=== PATIENT | male | born 1975 | race Caucasian/White ===

== ENCOUNTER 2016-09-06 07:01 | Inpatient (IN) | payer OTHER, BC ==
--- NOTE | ~2016-09-06 | CN ---
Consultation Report [facility] [address] [place]. [address] NAME: LAY BEASLEY : 79 STATUS : ADM IN PAT#: [id number] AGE: 40 ADM/REG DATE : 09/06/16 MR#: [id number] REPORT SERV DATE: 09/07/16 DICTATED BY: LIBRA MOREIRA DATE: 09/06/16 REPORT STATUS : Draft TRANSCRIBED BY: MODL DATE: 09/06/16 CONSULTATION REPORT DATE OF CONSULTATION: 09/06/2016 REASON FOR CONSULTATION: Consulted for tachycardia. IDENTIFYING DATA: 1. Primary care physician Michael Spaulding in [place], [place]. 2. Orthopedist, Nicholas Deng M.D. HISTORY OF PRESENT ILLNESS: This is a 40-year-old, male, with minimal history of health problems. He basically has no allergies. He has chronic GERD, and he has had dental surgery in the past. He presently is postoperative from his minimally invasive navigational assisted T11 to T12 facetectomy, transforaminal interbody fusion with cages with Dr. Nicholas Deng. Postoperatively, the patient has had some tachycardia for which the hospitalist group has been consulted. As previously noted, the patient has no past history of cardiac, respiratory, or very few medical problems barring occasional illness and chronic GERD. Upon discussing with the patient about the consult, he has no complaints of shortness of breath, chest pain, and is totally unaware of the tachycardia. The patient's history was obtained through interview with the patient. There was no previous notation in [facility] on admission. PAST MEDICAL HISTORY: GERD. HOME MEDICATIONS: 1. Indocin 25 mg p.o. three times daily. 2. Aleve 220 mg p.o. every 12 hours. 3. Prilosec xiaj-uyi-ldohrhs 20 mg p.o. daily. ALLERGIES: NO KNOWN ALLERGIES. SOCIAL HISTORY: The patient has been for 17 years. He has two children. 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 He bikes 2-3 times a week and has no complaints of chest pain or shortness of breath. He lives in a [facility] home. No tobacco, alcohol, or illicit drug use. FAMILY HISTORY: Positive for diabetes, cardiovascular disease, and rheumatoid arthritis. His mother was positive for hypertension, had a previous cardiac stent, diabetes, and rheumatoid arthritis. Father is alive and healthy. The patient has 3 half siblings. Health history is unknown. Consultation Report [facility] [address] [place]. [address] NAME: LAY BEASLEY : 79 STATUS : ADM IN PAT#: [id number] AGE: 40 ADM/REG DATE : 09/06/16 MR#: [id number] REPORT SERV DATE: 09/07/16 DICTATED BY: LIBRA MOREIRA DATE: 09/06/16 REPORT STATUS : Draft TRANSCRIBED BY: RYANNE DATE: 09/06/16 SURGICAL HISTORY: Dental surgery in 2014 other than the patient has the present surgery with Dr. Nicholas Deng. REVIEW OF SYSTEMS: Negative other than what is in HPI. The patient is alert and oriented x3. He has no nausea and vomiting. He has no abdominal pain. He has had no shortness of breath. He has had no chest pain. He has had no fever. He is not confused nor is there any agitation. PHYSICAL EXAMINATION: VITAL SIGNS: From today; blood pressure 119/76, respiratory rate 16, heart rate 110, temperature 98.0, O2 saturation 94% on 2 L nasal cannula. GENERAL: This is a very pleasant 40-year-old, male, resting in bed. No acute distress. He has his at bedside. He is awake and alert and answers questions appropriately. NEURO: His head is atraumatic. He is normocephalic. Alert and oriented x3. His cranial nerves 2-12 are grossly intact. His mood is pleasant and appropriate. NECK: Supple. Trachea is midline. No JVD noted. No obvious thyromegaly or lymphadenopathy. EENT: His sclerae are nonicteric. His pupils are equal and reactive to light. His nares are patent. His mucous membranes are moist. His tongue is midline. No deviation. Soft palate rises equally when he is talking. CHEST: No pain with palpation. LUNGS: Clear to auscultation bilaterally. He has normal respiratory effort. He has no increased work of breathing with conversation. He is encouraged to use the incentive spirometer to prevent atelectasis and pneumonia. CARDIOVASCULAR: S1, S2. No obvious murmurs, rubs, or gallops. The patient is on defensive monitoring which displays sinus tachycardia with a rate at 116. ABDOMEN: Soft, nontender. The patient has active bowel sounds. No palpable organomegaly. States his last bowel movement was 09/06/2016. SKIN: Warm and dry. No unusual rashes or lesions. Normal color and turgor. PSYCH: The patient is pleasant and cooperative with an appropriate mood and affect. SURGICAL WOUND SITE: Dressing is clean, dry, and intact. The patient has a LINDA drain that is compressed with sanguinous drainage. He does have bilateral TEDs and SCDs in place with normal distal pulses. No calf tenderness and no edema to the lower extremities. LABORATORY DATA: Sodium 140, potassium 4.3, chloride 106, BUN 14, creatinine 1.37, GFR 65, glucose 148, calcium 8.3, white blood cell 15.3, hemoglobin 14.5, hematocrit 43.6, platelets 315. Blood sugars noted were 105, 135, 148. The patient does have a chest x-ray ordered for in the a.m. postoperatively. On 09/06/2016, an ECG was ordered which displays a sinus tachycardia with an inferior infarct of age undetermined and noted as an abnormal ECG. ASSESSMENT AND PLAN: Consultation Report [address] [place]. [address] NAME: LAY BEASLEY : 79 STATUS : ADM IN [facility]#: [id number] AGE: 40 ADM/REG DATE : 09/06/16 MR#: [id number] REPORT SERV DATE: 09/07/16 DICTATED BY: LIBRA MOREIRA DATE: 09/06/16 REPORT STATUS : Draft TRANSCRIBED BY: MODCarrie DATE: 09/06/16 1. The hospitalist group was consulted. The patient has tachycardia. He states that he feels that his heart rate is normally not that high, when I told him he ran 112 to 120. He is on defensive monitoring. We will continue that while he is inpatient. We will check a TSH and a free T3 as well as a troponin q.8h x3. even though the patient has not complained of any chest pain. We have noted that his present ECG has noted it as an abnormal ECG with an old inferior infarct. We will also initiate a normal saline bolus. 2. Acute kidney injury. The patient was previously on NSAIDs of Aleve and Indocin at home, and they have been placed on hold. His present creatinine is 1.37. We will need to continue to hydrate the patient p.o. as well as with IV fluids which are placed at 125 an hour. We need to hold nephrotoxic drugs especially NSAIDs. We will repeat his BMP in the morning. 3. Gastroesophageal reflux disease. Aware. The patient does have chronic gastroesophageal reflux disease. We will continue his daily dose of Prilosec. 4. Elevated glucose. The patient blood sugars postoperatively were 105, 135, and 148. He is not diabetic but he does have Decadron ordered q.8 hours postoperatively by orthopedist. We will check his fingerstick blood sugars a.c. and at bedtime, and staff can call if his blood sugar is greater than 150. 5. Labs to be obtained; BMP, magnesium, phosphorus, CBC, TSH, free T4, hemoglobin A1c, a portable chest x-ray, and troponins q.8h x3. The hospitalist group would like to thank you for this consultation. Let us know if we can be of further assistance. /RYANNE Libra Moreira NP / [id number] CC: Marge Zimmerman II, FNP
--- NOTE | ~2016-09-06 | DS ---
Discharge Summary [facility] [address] [place]. [address] NAME: LAY BEASLEY : 79 STATUS : DIS IN PAT#: [id number] AGE: 40 ADM/REG DATE : 09/06/16 MR#: [id number] REPORT SERV DATE: 09/21/16 DICTATED BY: ADDIE DENG II DATE: 09/20/16 REPORT STATUS : Draft TRANSCRIBED BY: RYANNE DATE: 09/20/16 Data Collection from hospitalization DISCHARGE DIAGNOSES: 1. T11-T12 diskogenic thoracic spinal pain. 2. Left thoracic radiculopathy. 3. 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 4. Gastroesophageal reflux disease. CONSULTATIONS: 1. Dodie Albright M.D. 2. Libra Dent NP. PROCEDURES PERFORMED: Left T11-T12, complete facetectomy; interbody arthrodesis, T11-T12; application of prosthetic device, T11-T12; posterolateral arthrodesis, T11-T12; posterior nonsegmental instrumentation, T11-T12; use of local autograft, allograft substitute, and bone morphogenic protein; use of microscope and stereotactic spinal imaging, 09/06/2016. PATHOLOGY: Spine, lumbar bone, and tissue-fibrocartilaginous consistent with intervertebral disk. Benign bone fragments with degenerative changes. MEDICATIONS: Valium 2 mg every six hours as needed, Docu-Soft 100 mg twice a day, Dilaudid 2 mg every four hours as needed, Prilosec 20 mg daily. He was instructed not to continue naproxen/Aleve. CONDITION AT DISCHARGE: Stable. DISPOSITION: The patient was discharged home on a regular diet with activities as instructed. He would follow up with me, 09/28/2016. HOSPITAL COURSE: This is a 40-year-old man, who had complained of lumbar spine related symptoms. The symptoms are located in the low back. He had undergone a diskogram in May 2016. He has T11-T12 diskogenic thoracic spinal pain and left thoracic radiculopathy. He has stenosis at T11-T12. Treatment options were discussed and it was elected to proceed with surgical intervention. He was admitted to the hospital at this time for further evaluation and treatment. Upon admission, he was taken to the operating room where he underwent the above-mentioned procedure. He tolerated this well. There were no complications. Postoperatively, he was seen by Libra Dent regarding tachycardia. Postoperatively, he has some tachycardia. He has no past history of cardiac, respiratory, and very few medical problems. He does have chronic gastroesophageal reflux disease. He had no complaints of shortness of breath or chest pain, and was totally unaware of the tachycardia. ECG revealed sinus tachycardia with inferior infarct of age undetermined and this was noted as an abnormal ECG. The patient said that he felt that his heart rate was normally not this high. He was on defensive monitoring. This would be continued while he was an inpatient. TSH and free T3 were going to be checked as well as a troponin. His ECG had been abnormal with an old inferior infarct. He was also given a normal saline bolus. He was felt to have acute kidney injury. Discharge Summary [facility] [id number] [place]. [address] NAME: LAY BEASLEY : 79 STATUS : DIS IN PAT#: [id number] AGE: 40 ADM/REG DATE : 09/06/16 MR#: [id number] REPORT SERV DATE: 09/21/16 DICTATED BY: ADDIE DENG II DATE: 09/20/16 REPORT STATUS : Draft TRANSCRIBED BY: RYANNE DATE: 09/20/16 His creatinine level was 1.37, hydration was continued. Nephrotoxic drugs would be held especially NSAIDs. Daily Prilosec was continued. He is not a diabetic. Decadron had been ordered postoperatively. Blood cultures were obtained. We were going to check a hemoglobin A1c and other labs. On postop day #1, we encouraged him to mobilize. He did not sleep much the previous evening secondary to pain and inability to void. He denied any chest pain or shortness of breath. He did have some hiccups and indigestion. Level 1 sliding scale insulin was started. Hemoglobin A1c was 5.3. It was felt this is likely secondary to steroids. White blood cell count was 21.6 likely secondary to steroids. On 09/08/2016, the patient continued to do well. He still had some urinary retention. He was seen by Dr. Dodie Ablright regarding urinary retention. A Juarez catheter had been placed. He said he had no voiding issues preoperatively. His catheter revealed clear yellow urine. Urinalysis was entirely negative. The patient's acute kidney injury, hyperglycemia, and tachycardia had resolved. He did have leukocytosis and white count was 25.9. He said he was feeling much better at this time than the day previously. A voiding trial would be performed the following morning. Bladder scans were to be performed after each void. It was discussed with the patient that it was not unusual to have some difficulty emptying the bladder after surgery, especially spine surgery. After his voiding trial if the catheter needed to be replaced, he could have bladder rest with the catheter in place draining continuously and then follow up in the office for a voiding trial in one week. Discharge planning was performed. He was evaluated by Physical Therapy. Orthostatic blood pressures were checked. On 09/09/2016, he was alert and cooperative. He said he felt well. He did have some slight dizziness with ambulation. He was voiding okay after the Juarez was removed. He had not had a bowel movement. Urinalysis was negative. Blood cultures were negative. Chest x-ray showed no infiltrate. It was suspected that his postop tachycardia, acute kidney injury, urinary retention, and dizziness was suspected due to anesthesia reaction. These had now resolved. Discharge instructions were given. Due to his improved and stable condition, he was discharged home with the above-stated instructions. Information collected by: Bernie Milan I submit the above information as my discharge summary. TG/RYANNE Addie Deng II, M.D. / [id number] CC: Marge Zimmerman II, M.D. Charles Cyrus, MD
--- NOTE | ~2016-09-06 | CN ---
Consultation Report [facility] [address] [place]. [address] NAME: LAY BEASLEY : 79 STATUS : ADM IN [facility]#: [id number] AGE: 40 ADM/REG DATE : 09/06/16 MR#: [id number] REPORT SERV DATE: 09/09/16 DICTATED BY: DODIE ALBRIGHT DATE: 09/08/16 REPORT STATUS : Draft TRANSCRIBED BY: MODL DATE: 09/08/16 UROLOGY CONSULT DATE OF CONSULTATION: 09/08/2016 This consult is from Dr. Deng regarding urinary retention. CHIEF COMPLAINT: "I couldn't urinate." HISTORY: This is a 40-year-old gentleman who underwent thoracic spine surgery on 09/06/2016. He could not pass his urine and a Juarez catheter was placed yesterday around lunchtime. He states he had no voiding issues preoperatively. He currently has a catheter in place with clear yellow urine. His urinalysis was entirely negative. He has had some postoperative medical complications consisting of tachycardia, leukocytosis, hyperglycemia, acute kidney injury, and a syncopal episode this morning. His acute kidney injury, hyperglycemia, and tachycardia have resolved. His leukocytosis continues and is now 25.9 today. He states he feels much better today than yesterday. PAST MEDICAL HISTORY: Significant for back and disk disease, gastroesophageal reflux disease, and previous fractures. PAST SURGICAL HISTORY: No previous surgical history. HOME MEDICATIONS: Aleve and indomethacin. ALLERGIES: NO KNOWN DRUG ALLERGIES. 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 He denies any tobacco use. REVIEW OF SYSTEMS: GENERAL: Denies fever and chills. NEUROLOGIC: Denies symptoms. LUNGS: Denies symptoms. HEART: Denies symptoms. GI: As above. : As above. MUSCULOSKELETAL: As above. PHYSICAL EXAMINATION: VITAL SIGNS: He has been afebrile. His blood pressure is 129/78 with pulse of 83. He has had 2855 mL in and 4135 mL out. GENERAL: He is in no acute distress. NEUROLOGIC: Alert and oriented x3. PSYCHIATRIC: Appropriate. HEENT: Facial features symmetric. Eyes, sclerae anicteric. Consultation Report [facility] [address] [place]. [address] NAME: LAY BEASLEY : 79 STATUS : ADM IN PAT#: [id number] AGE: 40 ADM/REG DATE : 09/06/16 MR#: [id number] REPORT SERV DATE: 09/09/16 DICTATED BY: DODIE ALBRIGHT DATE: 09/08/16 REPORT STATUS : Draft TRANSCRIBED BY: RYANNE DATE: 09/08/16 NECK: Supple. LUNGS: Equal inspiratory effort bilaterally. CARDIOVASCULAR: EKG shows regular rate and rhythm. EXTREMITIES: Show no edema. : He has a Juarez catheter in place, draining clear yellow urine. LABORATORY STUDIES: Today, his creatinine is 1.13. His white blood cell count is 25.3 compared to 21.6 yesterday, hemoglobin 13.6, platelets of 325. IMPRESSION: Postoperative urinary retention after spine surgery. PLAN: 1. We will give him a voiding trial tomorrow morning at 7 a.m. I have written orders for this including bladder scans after each void. I discussed with him that it is not unusual to have some difficulty emptying the bladder after a surgery especially spine surgery. He stated understanding. 2. Follow up on him tomorrow to see how the voiding trial has gone. If his catheter needs to be replaced, he can have bladder rest with a catheter in place draining continuously and come to see me in the office for a voiding trial in a week's time. VIVIANE/RYANNE Dodie Albright M.D. / [id number] CC: Nicholas Deng II, M.D.
--- NOTE | ~2016-09-06 | OP ---
Record Of Operation [address] [place]. [address] NAME: LAY BEASLEY : 79 STATUS : DIS IN PAT#: [id number] AGE: 40 ADM/REG DATE : 09/06/16 MR#: [id number] REPORT SERV DATE: 09/11/16 DICTATED BY: ADDIE DENG II DATE: 09/11/16 REPORT STATUS : Draft TRANSCRIBED BY: MODL DATE: 09/11/16 DATE OF PROCEDURE: 09/06/2016 PREOPERATIVE DIAGNOSES: 1. T11-T12 discogenic thoracic spinal pain. 2. Left thoracic radiculopathy. 3. 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 POSTOPERATIVE DIAGNOSES: 1. T11-T12 discogenic thoracic spinal pain. 2. Left thoracic radiculopathy. 3. 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 PROCEDURE: 1. Left T11-T12 complete facetectomy. 2. Interbody arthrodesis, T11-T12. 3. Application of prosthetic device, T11-T12. 4. Posterolateral arthrodesis, T11-T12. 5. Posterior nonsegmental instrumentation, T11-T12. 6. Use of local autograft, allograft substitute, and bone morphogenic protein. 7. Use of the microscope and stereotactic spinal imaging. FLUIDS: 1800 mL LR. ESTIMATED BLOOD LOSS: 50 mL. DRAINS: One drain. COMPLICATIONS: None. ANTIBIOTIC: Preoperatively. 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. He has been having significant lower thoracic pain consistent with discogenic causes. We discussed the pros and cons of surgery. We discussed the fact that accurately delineating the pain generator was one of the bigger obstacles in trying to treat him efficiently. He ultimately underwent a discogram, which was found to be positive. He also does have some thoracic radiculopathy secondary to foraminal stenosis. We discussed the case and overall I discussed with him the rates of success versus failure. We discussed with him rather openly that this was a difficult situation and overall I did not feel he had many great options left. He had exhausted an extreme amount of conservative care. He was overall hopeful he could get better without surgery, but his pains have continued to worsen. He has asked me to "fix him." I advised him that surgery hopefully will give him a nice result, but there was a chance of failure and we discussed the fact that there was probably 20% to 25% chance of failure or the surgery does not help him. We discussed that if the surgery does help him, it likely would not be a cure, but hopefully Record Of Operation [address] [place]. [address] NAME: LAY BEASLEY : 79 STATUS : DIS IN PAT#: [id number] AGE: 40 ADM/REG DATE : 09/06/16 MR#: [id number] REPORT SERV DATE: 09/11/16 DICTATED BY: ADDIE DENG II DATE: 09/11/16 REPORT STATUS : Draft TRANSCRIBED BY: RYANNE DATE: 09/11/16 would be a 50% to 75% reduction. We also discussed the risks of the surgery and he wished to proceed. DESCRIPTION OF PROCEDURE: After informed consent was obtained, Mr. Beasley was brought to the operating room at his request and general anesthesia achieved. He was placed in the prone position. The back was prepped and draped in a sterile fashion. The iliac crest was chosen and the stereotactic pin placed. The intraoperative CT scan was completed. Stereotactic guidance was then used throughout the case. Next, the minimally invasive incision was performed on the left at T11-T12. The quadrant retractor was placed and the microscope brought into place. The facet was now removed at T11-T12 with a high-speed bur and the Kerrison rongeurs and the curettes. The T11 nerve root did exhibit some edema and erythema secondary to the foraminal compression. There was also a disc osteophyte complex moderately compressing the T11 nerve root. At this point, the area was now irrigated followed by bipolar electrocautery. We were able to successfully and safely find a portal to the T11-T12 disc space. Given the location of the spinal cord, we of course could not retract the spinal cord. We were able to use the knife for the annulotomy and the diskectomy was now completed with the pituitary rongeurs, Kerrison rongeurs, the curettes, and the sahron. The space overall did appear to be significantly more hypermobile that I would have anticipated given this thoracic location with the articulation of the ribs bilaterally. The disc space was denuded of its cartilage. The area was irrigated once again, punctate bleeding bone was identified followed by the placement of local autograft into the anterior column. The prosthetic device was then trialed and placed at the T11-T12. This contained the very small amount of bone morphogenic protein. Next, the pedicle screws were applied into the T11 and T12. The bone quality was excellent. The percutaneous screws were placed on the right side. The repeat CT scan confirmed acceptable placement. The rods were then final tightened. Next, the medial aspect of the rib were now decorticated along with the transverse processes. Local autograft, allograft substitute, and bone morphogenic protein were then placed along the decorticated surfaces. A deep drain was placed followed by standard closure and the patient was then extubated and transferred to PACU in stable condition. PARAS/RYANNE Addie Deng II, M.D. / [id number] CC: Addie Deng II, M.D.
[~2016-09-06 07:01] MED LIST: ALEVE220 MG PO; IND25 PO; PRILOSEC OTC20 MG PO
[2016-09-06 20:31] LABS: BASOPHILS 0.1 %; BASOPHILS ABSOLUTE 0.01 10/3/uL (0.0-0.16); EOSINOPHILS 0 %; HEMATOCRIT 43.6 % (40.0-51.0); HEMOGLOBIN 14.5 g/dL (13.6-17.8); IMMATURE GRANULOCYTES 0.5 %; IMMATURE GRANULOCYTES ABSOLUTE 0.07 10/3/uL (0.0-0.11); LYMPHOCYTES ABSOLUTE 0.91 10/3/uL (0.67-4.30); MEAN CORPUS HGB CONC 33.3 g/dL (32.0-36.0); MEAN CORPUSCULAR HEMOGLOB 30.8 pg (26.0-34.0); MEAN CORPUSCULAR VOLUME 92.6 fL (80-100); MEAN PLATELET VOLUME 10.5 fL (9.2-13.0); MONOCYTES 1.1 %; MONOCYTES ABSOLUTE 0.17 10/3/uL (0.21-1.20); NEUTROPHILS 92.3 %; PLATELET COUNT 315 10/3/uL (150-400); RBC DISTRIBUTION WIDTH 12.2 % (12.0-16.0); RED CELL COUNT 4.71 10/6/uL (4.7-6.1); WHITE BLOOD CELLS 15.3 10/3/uL (4.5-10.5)
[2016-09-06 20:32] LABS: MANUAL DIFF NO %
[2016-09-06 20:43] LABS: BUN (BLOOD UREA NITROGEN) 14 MG/DL (6-23); CALCIUM, SERUM 8.3 MG/DL (8.5-10.4); CHLORIDE, SERUM 106 MMOL/L (96-112); CO2 (CARBON DIOXIDE) 27 MMOL/L (24-34); CREATININE 1.37 MG/DL (0.70-1.30); GFR AFRICAN AMERICAN 75 ML/MIN (>=60); GFR NON AFRICAN AMERICAN 65 ML/MIN (>=60); GLUCOSE, SERUM 148 MG/DL (60-99); POTASSIUM, SERUM 4.3 MMOL/L (3.5-5.3); SODIUM, SERUM 140 MMOL/L (135-148)
[2016-09-07 02:27] LABS: TROPONIN I <0.02 NG/ML (<0.05)
[2016-09-07 02:29] LABS: CPK 1241 U/L (0-200)
[2016-09-07 07:21] LABS: BASOPHILS 0 %; EOSINOPHILS 0 %; HEMATOCRIT 42.4 % (40.0-51.0); HEMOGLOBIN 13.9 g/dL (13.6-17.8); IMMATURE GRANULOCYTES 0.3 %; IMMATURE GRANULOCYTES ABSOLUTE 0.06 10/3/uL (0.0-0.11); LYMPHOCYTES 4.5 %; LYMPHOCYTES ABSOLUTE 0.98 10/3/uL (0.67-4.30); MANUAL DIFF NO %; MEAN CORPUS HGB CONC 32.8 g/dL (32.0-36.0); MEAN CORPUSCULAR HEMOGLOB 30.3 pg (26.0-34.0); MEAN CORPUSCULAR VOLUME 92.6 fL (80-100); MEAN PLATELET VOLUME 10.4 fL (9.2-13.0); MONOCYTES 4.2 %; NEUTROPHILS ABSOLUTE 19.62 10/3/uL (2.02-8.40); PLATELET COUNT 315 10/3/uL (150-400); RBC DISTRIBUTION WIDTH 12.4 % (12.0-16.0); RED CELL COUNT 4.58 10/6/uL (4.7-6.1); WHITE BLOOD CELLS 21.6 10/3/uL (4.5-10.5)
[2016-09-07 07:47] LABS: BUN (BLOOD UREA NITROGEN) 13 MG/DL (6-23); CALCIUM, SERUM 8.7 MG/DL (8.5-10.4); CHLORIDE, SERUM 108 MMOL/L (96-112); CK-MB 4.1 NG/ML; CO2 (CARBON DIOXIDE) 27 MMOL/L (24-34); CPK 1358 U/L (0-200); CREATININE 1.17 MG/DL (0.70-1.30); FREE T4 1.33 NG/DL (0.76-1.46); GFR AFRICAN AMERICAN 91 ML/MIN (>=60); GFR NON AFRICAN AMERICAN 79 ML/MIN (>=60); GLUCOSE, SERUM 165 MG/DL (60-99); PHOSPHORUS, SERUM 1.3 MG/DL (2.5-4.5); POTASSIUM, SERUM 4.1 MMOL/L (3.5-5.3); SODIUM, SERUM 142 MMOL/L (135-148); TROPONIN I 0.03 NG/ML (<0.05); ULTRASENSITIVE TSH 0.477 MCIU/ML (0.358-3.740)
[2016-09-07 14:12] LABS: CK-MB 3.8 NG/ML; CPK 1253 U/L (0-200); TROPONIN I 0.04 NG/ML (<0.05)
[2016-09-08 04:36] LABS: HEMATOCRIT 41.9 % (40.0-51.0); HEMOGLOBIN 13.6 g/dL (13.6-17.8); MEAN CORPUS HGB CONC 32.5 g/dL (32.0-36.0); MEAN CORPUSCULAR HEMOGLOB 30.5 pg (26.0-34.0); MEAN CORPUSCULAR VOLUME 93.9 fL (80-100); PLATELET COUNT 325 10/3/uL (150-400); RBC DISTRIBUTION WIDTH 12.4 % (12.0-16.0); RED CELL COUNT 4.46 10/6/uL (4.7-6.1)
[2016-09-08 04:38] LABS: WHITE BLOOD CELLS 25.9 10/3/uL (4.5-10.5)
[2016-09-08 04:39] LABS: MANUAL DIFF YES %
[2016-09-08 04:50] LABS: CALCIUM, SERUM 8.6 MG/DL (8.5-10.4); CHLORIDE, SERUM 107 MMOL/L (96-112); CO2 (CARBON DIOXIDE) 29 MMOL/L (24-34); CREATININE 1.13 MG/DL (0.70-1.30); GFR AFRICAN AMERICAN 95 ML/MIN (>=60); GFR NON AFRICAN AMERICAN 82 ML/MIN (>=60); POTASSIUM, SERUM 4.5 MMOL/L (3.5-5.3); SODIUM, SERUM 141 MMOL/L (135-148)
[2016-09-08 04:51] LABS: BUN (BLOOD UREA NITROGEN) 17 MG/DL (6-23); GLUCOSE, SERUM 121 MG/DL (60-99); PHOSPHORUS, SERUM 2.9 MG/DL (2.5-4.5)
[2016-09-08 05:31] LABS: BAND NEUTROPHILS 1 %; LYMPHOCYTES 9 %; LYMPHOCYTES ABSOLUTE (CALC) 2.33 10/3/uL (0.67-4.30); MONOCYTES 6 %; MONOCYTES ABSOLUTE (CALC) 1.55 10/3/uL (0.21-1.20); NEUTROPHILS ABSOLUTE (CALC) 22.02 10/3/uL (2.02-8.40); SEGMENTED NEUTROPHIL (0) 84 %; TOTAL NUCLEATED CELLS 100
[2016-09-08 05:32] LABS: PLATELET ESTIMATE ADQ (ADEQUATE); RBC MORPHOLOGY NORM (NORMAL)
[2016-09-08 10:22] LABS: ASCORBIC ACID (UR NOT ORDER) NEG (NEG); BILIRUBIN, URINE NEGATIVE (NEG); KETONE, URINE NEGATIVE (NEG); LEUKOCYTE ESTERASE(NOT OR NEG (NEG); WBC (NOT ORDERED) (RFLEX) < 1 (0-5)
[2016-09-08 10:53] LABS: PROCALCITONIN 0.06 ng/mL (<0.5)
[2016-09-08 11:11] LABS: TROPONIN I 0.05 NG/ML (<0.05)
[2016-09-09 06:29] LABS: BASOPHILS 0.2 %; BASOPHILS ABSOLUTE 0.03 10/3/uL (0.0-0.16); EOSINOPHILS 0.9 %; EOSINOPHILS ABSOLUTE 0.12 10/3/uL (0.0-0.53); HEMOGLOBIN 13.7 g/dL (13.6-17.8); IMMATURE GRANULOCYTES 0.4 %; IMMATURE GRANULOCYTES ABSOLUTE 0.05 10/3/uL (0.0-0.11); LYMPHOCYTES 30.8 %; LYMPHOCYTES ABSOLUTE 4.08 10/3/uL (0.67-4.30); MEAN CORPUS HGB CONC 32.6 g/dL (32.0-36.0); MEAN CORPUSCULAR HEMOGLOB 30.6 pg (26.0-34.0); MEAN PLATELET VOLUME 10.3 fL (9.2-13.0); MONOCYTES 10.2 %; MONOCYTES ABSOLUTE 1.35 10/3/uL (0.21-1.20); NEUTROPHILS 57.5 %; NEUTROPHILS ABSOLUTE 7.62 10/3/uL (2.02-8.40); PLATELET COUNT 286 10/3/uL (150-400); RBC DISTRIBUTION WIDTH 12.3 % (12.0-16.0); RED CELL COUNT 4.47 10/6/uL (4.7-6.1)
[2016-09-09 06:30] LABS: MANUAL DIFF NO %; WHITE BLOOD CELLS 13.3 10/3/uL (4.5-10.5)
[2016-09-09 06:40] LABS: BUN (BLOOD UREA NITROGEN) 18 MG/DL (6-23); CALCIUM, SERUM 8.4 MG/DL (8.5-10.4); CHLORIDE, SERUM 106 MMOL/L (96-112); CO2 (CARBON DIOXIDE) 34 MMOL/L (24-34); CPK 471 U/L (0-200); CREATININE 1.18 MG/DL (0.70-1.30); GFR AFRICAN AMERICAN 90 ML/MIN (>=60); GFR NON AFRICAN AMERICAN 78 ML/MIN (>=60); GLUCOSE, SERUM 93 MG/DL (60-99); POTASSIUM, SERUM 4.4 MMOL/L (3.5-5.3); SODIUM, SERUM 144 MMOL/L (135-148)
[2016-09-09] MEDS ORDERED: V2 PO (17:19)
[2016-09-09] MEDS ORDERED: DOCUSOFT S100 MG PO (17:19)
[2016-09-09] MEDS ORDERED: DIL2TAB PO (17:20)
== END 2016-09-09 18:03 | disposition home or self-care (01) | DRG 460 ==
LOC: SDC/OF 07:01 → 3SO 16:54
PROVIDERS: Nurse Practitioner; Nurse Practitioner Family; Orthopaedic Surgery
PROC: 0RG60AJ Fusion of Thoracic Vertebral Joint with Interbody Fusion Device, Posterior Approach, Anterior Column, Open Approach (ICD-10-PCS; principal; 2016-09-06 08:45)
PROC: 4A11X4G Monitoring of Peripheral Nervous Electrical Activity, Intraoperative, External Approach (ICD-10-PCS; 2016-09-06 08:45)
DX: M51.14 Intervertebral disc disorders with radiculopathy, thoracic region (principal); N17.9 Acute kidney failure, unspecified; R33.9 Retention of urine, unspecified; K21.9 Gastro-esophageal reflux disease without esophagitis
CPT/HCPCS: 71010; 80048; 81001; 82550; 82553; 82962; 83036; 83735; 84100; 84145; 84439; 84443; 84484; 85025; 86812; 87040; 87641; 88304; 88311; 93005; 97110-GP; 97116-GP; 97161-GP; 97530-GP; A9270-GY; C1713; C1768; J0690; J1170; J1885; J2250; J2405; J2710; J3010